=== PATIENT | female | born 1975 | race Caucasian/White ===

== ENCOUNTER 2021-12-28 18:19 | Emergency (ER) | payer BC, SELFPAY ==
[2021-12-28 18:30] VITALS: BP 145/74; PULSE 88; RESP 20; TEMP 36.1; O2SAT 100
--- NOTE | 2021-12-28 18:54 | ED.URI ---
HPI - URI/Sore Throat General Chief Complaint: Upper Respiratory Infection Stated Complaint: sore throat ear pain achey chills Time Seen by Provider: 12/28/21 18:40 Source: patient, RN notes reviewed and old records reviewed Mode of arrival: ambulatory Limitations: no limitations History of Present Illness HPI Narrative: 46-year-old female who presents to [facility] care with complaints of headache, chills, body aches, cough, sore throat, ear pain, fatigue since Sunday. Patient denies any known fevers has been taking Tylenol and DayQuil for her symptoms. Patient reports tht she has had COVID vaccinations but no flu shot, did do home COVID test which was negative. Patient denies any ill contacts.Patient reports no shortness of breath or any noted wheezing. MD elicited complaint: cough, sore throat and other (headache and achy, ear pain, fatigue) Pain scale (0-10): 7 Treatments prior to arrival: acetaminophen and other (DayQuil) Related Data Home Medications Medication Instructions Recorded Confirmed bupropion HCl 150 mg tablet,12 hr 150 mg PO DAILY 12/28/21 12/28/21 sustained-release venlafaxine 150 mg 150 mg PO DAILY 12/28/21 12/28/21 capsule,extended release 24 hr Allergies Allergy/AdvReac Type Severity Reaction Status Date / Time No Known Allergies Allergy Unverified 12/28/21 18:40 Review of Systems Review of Systems: CONSTITUTIONAL:Positive malaise, chills, sweats, no known fever. reports fatigue EYES: Denies visual changes, redness, or discharge. ENT: Reports rhinorrhea, congestion, sinus pain, otalgia and sore throat. CARDIOVASCULAR: Denies chest pain, palpitations, or edema. RESPIRATORY: Reports cough.? Denies dyspnea. GASTROINTESTINAL: Denies abdominal pain, nausea, vomiting, diarrhea SKIN: Denies rash or itching. MUSCULOSKELETAL:Reports myalgia. NEUROLOGIC:Reports headache. All systems reviewed & are unremarkable except as noted in HPI and below PMFSH Past Medical History Medical History (Updated 01/01/22 @ 11:20 by Claudia Carlson NP) Anxiety Depression Surgical History Surgical History (Updated 01/01/22 @ 11:18 by Claudia Carlson NP) Previous section Social History Social History (Updated 01/01/22 @ 11:18 by CAROLYN Humphreys Smoking status: Current some day smoker Tobacco type: cigarettes Alcohol intake: current Alcohol use details: social Substance use type: does not use Living arrangements: with family Gender identity (if verbalized by the patient): Female Comments At time of signature, agree with nursing past medical, surgical, social and family history. There is no relevant family history pertinent to the presenting complaint Exam Narrative: GENERAL: Well-appearing, well-nourished, and in no acute distress. HEAD: Normocephalic EYES: PERRLA, conjunctivae clear ENT: Nares clear, turbinates edematous and erythematous, clear discharge. Mucous membranes moist. TM pearly cortez with dull light reflex bilaterally; no tragal tenderness. Oropharynx erythematous without lesions. Tonsils not enlarged and without exudate, no drooling, no hoarseness, no trismus, uvula midline. NECK: Supple. No lymphadenopathy CHEST: Clear to auscultation, breath sounds equal. No wheezing, rhonchi, rales, or stridor. No respiratory distress, speaks in full sentences.cough noted with SAO2 100% on room air HEART: Regular rate and rhythm. No murmur heard. SKIN: Warm, dry, no rash. NEURO: Alert and oriented x3. PSYCH: Normal mood and affect Course Course Emergency Course: Patient is aware of diagnosis, understands and agrees to treatment plan.? Anticipatory guidance given.? Patient agrees to follow-up as directed and is aware of reasons to seek care at the emergency department. Portions of this record may have been created with voice recognition software Level of Care: Express Care Visit Vital Signs Vital signs: Vital Signs Temperature 36.
== END 2021-12-28 19:28 | disposition home or self-care (01) ==
PROVIDERS: Emergency Provider Registered Nurse
DX: J06.9 Acute upper respiratory infection, unspecified (principal); R05.9 Cough, unspecified; Z20.822 Contact with and (suspected) exposure to COVID-19; F17.210 Nicotine dependence, cigarettes, uncomplicated; F41.9 Anxiety disorder, unspecified; F32.A Depression, unspecified
CPT/HCPCS: 87081; 87426; 87804; 87880; 99203; C9803; G0463